=== PATIENT | female | born 1965 | race Caucasian/White ===

== ENCOUNTER 2023-11-07 08:21 | Emergency (ER) | payer BC, SELFPAY ==
[2023-11-07] VITALS (10 sets, daily range): BP systolic 122–169; BP diastolic 93–113; PULSE 82–103; RESP 16; TEMP 36.4; O2SAT 91–100; BMI 31.3
--- NOTE | 2023-11-07 08:29 | XRR_ITS ---
PROCEDURE INFORMATION: Exam: XR Left Ankle Exam date and time: 11/07/2023 8:46 AM Age: 58 years old Clinical indication: Injury or trauma; Fall; Fracture, traumatic; Closed fracture and displaced; Ankle; Right; Bimalleolar TECHNIQUE: Imaging protocol: Radiologic exam of the left ankle. Views: 3 or more views. COMPARISON: No relevant prior studies available. FINDINGS: Bones/joints: Displaced and angulated mildly comminuted distal fibula fracture. Displaced medial malleolar fracture. Medial subluxation of the tibia with respect to the talus by approximately half the talar dome width. Small corticated ossicle at the dorsal forefoot may represent sequela of old trauma versus phlebolith. Minimal posterior and plantar calcaneal enthesophytes. Soft tissues: Soft tissue swelling about the lower leg and ankle. XR/XR ankle LT min 3V* [id number] IMPRESSION: Displaced bimalleolar fracture.
--- NOTE | 2023-11-07 09:08 | W.ED.EXTPRO ---
HPI - Extremity Problem General: Chief complaint: Extremity Injury, Lower Stated complaint: ANKLE PAIN Time Seen by Provider: 11/07/23 08:21 Source: patient Mode of arrival: ambulatory History of Present Illness: 58-year-old female presents emergency room with acute Right ankle pain she slipped on the stairs going down this morning is obvious deformity. Arrives via EMS. No other injuries in the course of the fall. MD Complaint: joint swelling and joint pain Onset (ago): minute(s) Pain Consistency: constant Location: right (Ankle) Quality: sharp Relieving factors: immobilization Exacerbating factors: palpation Associated symptoms: Deny chest pain, fever(s) or rash Review of Systems Const: Denies: fever(s) or chills Card: Denies: chest pain Resp: Denies: dyspnea GI: Denies: abdominal pain : Denies: dysuria, urinary frequency or urinary urgency Musc: Denies: neck pain or back pain Skin/Breast: Denies: rash Physical Exam Const: GENERAL APPEARANCE: cooperative and comfortable ORIENTATION/CONSCIOUSNESS: Yes awake, Yes oriented to person, Yes oriented to place and Yes oriented to time HENMT: COMMON NORMALS: normocephalic, atraumatic and hearing grossly normal bilaterally HEAD & SCALP: normocephalic and atraumatic Resp: COMMON NORMALS: normal respiratory effort, No retractions, No use of accessory muscles and clear to auscultation bilaterally AUSCULTATION: clear to auscultation bilaterally Cardio: COMMON NORMALS: regular rate, regular rhythm and No murmurs present (Cardio) RATE: regular rate RHYTHM: regular rhythm Extremity: COMMON NORMALS: normal to inspection, capillary refill normal, no clubbing, cyanosis or edema, no calf tenderness and no pedal edema Neuro: SENSORIUM/ORIENTATION: Yes oriented to person, Yes oriented to place and Yes oriented to time Skin: COMMON NORMALS: no rashes or lesions noted GENERAL SKIN EXAM: no rashes or lesions noted Procedures Orthopedic Joint Reduction Joint #1: Time Out Performed: Yes Side: right Joint Reduction Location: ankle Analgesia: procedural sedation Technique used: traction/counter-traction Post-reduction neuro exam: intact Post-reduction vascular: intact Post Reduction X-Ray Obtained: Yes Post Reduction X-Ray Results: reduced Splint Applied: Yes Patient Tolerated Procedure: well Additional Comments: Reviewed films with Dr. Lowery on-call for podiatry postoperatively patient is feeling better the appearance of the films is not as good as he would like to see with the reduction however she is feeling better and is somewhat improved at least felt that it was adequate after reviewing the films I will see the patient next week. Procedural Sedation Indication: fracture/dislocation reduction Fentanyl: IV Fentanyl dose (mcg): 50 IV Etomidate dose (mg): 10 Patient Tolerated Procedure: well Complications: none Interventions: oxygen applied Course Vital Signs: Vital signs: Vital Signs Temperature 97.5 F L 11/07/23 08:21 Pulse Rate 92 11/07/23 10:50 Respiratory Rate 16 11/07/23 10:50 Blood Pressure 168/103 11/07/23 10:50 Pulse Oximetry 97 11/07/23 10:50 Oxygen Delivery Me thod Room Air 11/07/23 10:50 Oxygen Flow Rate 3 11/07/23 10:36 MDM - Extremity (Nontraumatic) Medical Decision Making Postreduction there is improved but not completely anatomically aligned. Patient has relief of symptoms pain is much better. Neurovascularly is intact. Reviewed the films with Dr. Mcknight she felt it was adequate for nicely patient next week for reduction on postreduction films appears to be a trimalleolar fracture. Dr. Mcknight asked that we get a CT for surgical planning. On the nasal bone there is a appearance of a small tip of the nasal bone that has been fractured is difficult to tell because of the thinness of the bone if this is old or acute. In either event does not cause any cosmetic abnormalities does not need any further action Medical Records I reviewed the patient's medical records. Lab Data I reviewed the patient's lab results. Radiology Impressions Ankle X-Ray 11/07/23 10:18 IMPRESSION: Displaced trimalleolar fracture with improved medial and lateral alignment status post reduction. Posterior malleolus fracture is now evident. Nasal Bones X-Ray 11/07/23 10:18 IMPRESSION: No acute findings. XR interpretation done by ED provider, pending radiology final review Discharge Plan Discharge Patient Disposition: Home Clinical Impression: Trimalleolar fracture of right ankle Condition: Stable Prescriptions: New hydrocodone-acetaminophen 5-325 mg tablet 1 tab PO Q6H PRN (Reason: pain) Qty: 20 0RF Discharge Orders: Discharge ED (Routine); Ordered 11/07/23 Ordered By: Stalin Killian Discharge Diet: Usual diet Discharge Activity: Limit activity as instructed Patient Instructions: Opioid Safety, Pain Management Activity Restrictions/Additional Instructions: Thank you for choosing [facility] for your healthcare needs today. Please realize this is an emergency room and that we are providing you with a medical screening exam and this may not be complete and all inclusive of all the testing and or work up that you may need to determine your ailment or severity of your illness. It is very important that you follow up as instructed or that you return to the Emergency Department should you have concerns or if your condition changes or worsens in any way. You were seen today after a injury to your right ankle. You have a fracture in the right ankle and will need to see podiatry likely will need surgery. Case management will help make arrangements for the follow-up. Elevate leg when you are able you may apply ice over the splint for comfort. Nonweightbearing on the right foot use crutches for any ambulation. Coding Level of Care Code ED Meter Reader Inspector for Juan Rocha
[2023-11-07] MEDS: ondansetron 2 mg/ML SDV 2 mL 4 MG IVP (10:11)
[2023-11-07] MEDS: fentaNYL 50 mcg/mL INJ 2mL IVP ×2 (10:11→11:48)
[2023-11-07] MEDS: etomidate 2 mg/mL INJ SDV 10 mL 10 MG IVP (10:16)
--- NOTE | 2023-11-07 10:18 | XRR_ITS ---
PROCEDURE INFORMATION: Exam: XR Right Ankle Exam date and time: 11/07/2023 10:31 AM Age: 58 years old Clinical indication: Injury or trauma; Fall; Blunt trauma; Ankle; Right; Additional info: Postreduction TECHNIQUE: Imaging protocol: Radiologic exam of the right ankle. Views: 3 or more views. COMPARISON: No relevant prior studies available. FINDINGS: Bones/joints: Malaligned trimalleolar fracture status post reduction shows improved medial and lateral fracture alignment. Mildly displaced and angulated posterior malleolus fracture is now evident. Soft tissues: Soft tissue swelling about the lower leg and ankle. XR/XR ankle RT min 3V* [id number] IMPRESSION: Displaced trimalleolar fracture with improved medial and lateral alignment status post reduction. Posterior malleolus fracture is now evident.
--- NOTE | 2023-11-07 10:18 | XRR_ITS ---
PROCEDURE INFORMATION: Exam: XR Nasal Bones Exam date and time: 11/07/2023 10:34 AM Age: 58 years old Clinical indication: Injury or trauma; Fall; Blunt trauma (contusions or hematomas); Nose TECHNIQUE: Imaging protocol: XR of the nasal bones. Views: Minimum of 3 views COMPARISON: No relevant prior studies available. FINDINGS: Sinuses: Well aerated. No opacification. Bones/joints: No fracture. Soft tissues: Unremarkable. XR/XR nasal bones min 3V [id number] IMPRESSION: No acute findings.
--- NOTE | 2023-11-07 11:01 | CTR_ITS ---
PROCEDURE INFORMATION: Exam: CT Right Lower Extremity Without Contrast, Ankle Exam date and time: 11/07/2023 11:08 AM Age: 58 years old Clinical indication: Injury or trauma; Fall; Blunt trauma; Ankle; Right; Additional info: Ankle fracture TECHNIQUE: Imaging protocol: CT of the right lower extremity without contrast was performed. Exam focused on the ankle. Radiation optimization: All CT scans at this facility use at least one of these dose optimization techniques: automated exposure control; mA and/or kV adjustment per patient size (includes targeted exams where dose is matched to clinical indication); or iterative reconstruction. COMPARISON: CR (LOW EXM, ) 11/07/2023 10:31 AM RADIATION DOSE METRICS: Total DLP (mGy-cm): 180.56 FINDINGS: Bones/joints: Displaced comminuted trimalleolar fracture with disrupted syndesmosis and subluxation of the tibiotalar joint. Mineralization is normal. Hind and midfoot bones are intact. Minimal calcaneal enthesophytes. Soft tissues: Soft tissue swelling about the ankle. CT/CT ankle RT wo con* [id number] IMPRESSION: Displaced comminuted trimalleolar fracture with disrupted syndesmosis and subluxation of the tibiotalar joint.
--- NOTE | 2023-11-09 08:09 | DCPLANNER ---
Message was sent to podiatry on 11/09/23 at 0810 am. Clinic to contact patient
== END 2023-11-07 12:08 | disposition home or self-care (01) ==
PROVIDERS: Emergency Provider Family Medicine
DX: S82.851A Displaced trimalleolar fracture of right lower leg, initial encounter for closed fracture (principal); W10.8XXA Fall (on) (from) other stairs and steps, initial encounter
CPT/HCPCS: 27818; 70160; 73610; 73700; 94799; 96374; 99152; 99285; J2405; J3010; J3490

== ENCOUNTER 2023-11-13 11:23 | Day surgery (SDC) | payer BC, SELFPAY ==
[2023-11-13] VITALS (14 sets, daily range): BP systolic 116–166; BP diastolic 82–110; PULSE 63–105; RESP 16–18; TEMP 36.1–36.6; O2SAT 92–97; BMI 31.3
[2023-11-13] MEDS: gabapentin 300 mg Capsule PO (12:25)
[2023-11-13] MEDS: scopolamine 1.5 Patch 1 PATCH TRANSDERMA (12:25)
[2023-11-13] MEDS: sodium chloride 0.9% 1,000 ML 30 ML IV (12:26)
[2023-11-13] MEDS: acetaminophen 1,000 MG/100 ML PIGGYBACK 400 MG IV (12:30)
[2023-11-13] MEDS: midazolam 1 mg/mL INJ 2 mL 2 MG IVP (12:30)
--- NOTE | 2023-11-13 12:53 | ANES.PREANE2 ---
Pre-Anesthetic Assessment Height/Weight: Height 1.7 m Temp Pulse Resp BP Pulse Ox O2 Del Method 97.9 F 105 H 18 143/110 95 Room Air 11/13/23 12:04 11/13/23 12:04 11/13/23 12:04 11/13/23 12:04 11/13/23 12:04 11/13/23 12:12 Preop Diagnosis: Right trimalleolar ankle fracture Operation Date: 11/13/23 13:15 Proposed Procedures p ORIF right trimalleolar ankle fracture 07666,S82.851A(Right) - Osmani Sutton DPM Last intake: Intake Last Liquid Date 11/11/23 Last Liquid Time 07:30 Last Solid Date 11/12/23 Last Solid Time 18:00 Social No alcohol and No tobacco Exam alert, oriented x 3, clear to auscultation bilaterally and regular rate & rhythm Airway Submandibular: within normal limits Cervical ROM: within normal limits Mallampati: Class II History/ROS No significant history except as noted and No significant complaints Pulmonary None reported CV/HEM None reported None reported Hepatic None reported GI None reported Metabolic None reported (Obesity) Musc/skel None reported Neuropsych None reported Anesthetic Plan ASA status: 2 Anesthesia: Anesthesia Evaluation, General and Regional (specify below) (Left Popliteal block) Risk of > 500 ml blood loss (7ml/kg in children): Yes, adequate IV access and fluids planned Medications/Allergies Home Medications Medication Instructions Recorded Confirmed Last Taken Type hydrocodone 5 mg-acetaminophen 325 1 tab PO Q6H PRN pain #20 tabs 11/07/23 11/12/23 Unknown Rx mg tablet hydrocodone 5 mg-acetaminophen 325 1 tab PO Q6H PRN post op pain 7 11/13/23 Unknown Rx mg tablet days #28 tabs ondansetron HCl 8 mg tablet 8 mg PO Q8H PRN nausea and 11/13/23 Unknown Rx vomiting #21 tabs Allergies Allergy/AdvReac Type Severity Reaction Status Date / Time nickel Allergy Intermediate ALGY-Rash Verified 11/12/23 14:05 Sulfa (Sulfonamide Allergy ALGY-Hives Verified 11/12/23 14:05 Antibiotics) Current Medications Generic Name Dose Route Start Last Admin Trade Name Freq PRN Reason Stop Dose Admin Sodium Chloride 1,000 mls @ 30 mls/hr 11/13/23 11:45 11/13/23 12:26 Sodium Chloride 0.9% IV 11/14/23 11:44 30 mls/hr .Q24H PADMINI Administration Midazolam HCl 2 mg 11/13/23 11:37 11/13/23 12:30 Midazolam 1 Mg/Ml Inj 2 Ml IVP 2 mg Q5M PRN Administration Preop Anxiety Data Anesthesia Cardiac Studies: No Data to Display
--- NOTE | 2023-11-13 12:56 | ANES.PROC ---
Anesthesia Procedures Procedure/Date: 11/13/23 Nerve Block ^: Nerve Block 1: Main Anesthesia: general anesthesia Time Out Performed: Yes Consent: requested by attending/covering physician, risks and benefits reviewed and patient agrees to proceed Nerve block location: popliteal (left) Anesthesia monitors applied: pulse oximetry, EKG and BP cuff Nerve block position: lateral Anesthetic Used: ropivicaine 0.5% (20 ml ) Ultrasound used to: recognize landmarks (unable to print picture. landmarks identified by PLATFORM ARCHITECT x 2 ) Interscalene/Femoral BLK: 4 stimuplex 21 g needle used for position and inplane approach Injection: neg aspiration of heme Patient Tolerated Procedure: well and no complications Complications: none
--- NOTE | 2023-11-13 13:43 | W.PM.OPSUD ---
Surgery/Procedure H&P Update DATE OF PROCEDURE: November 13, 2023 DATE H&P PERFORMED: 11/09/23 H&P UPDATE INFORMATION: I have reviewed H&P completed within last 30 days, I have examined patient prior to procedure, No changes to prior documentation and H&P is in [facility] [place] [place] EMR on date indicated PREOP DIAGNOSIS: Right trimalleolar ankle fracture PLANNED PROCEDURE: Operation Date: 11/13/23 13:15 Proposed Procedures p ORIF right trimalleolar ankle fracture 75603,S82.851A(Right) - Osmani Sutton DPM
[2023-11-13] MEDS: ceFAZolin 2,000 MG in sodium chloride 0.9% (plus) 50 ML 100 MG IV (13:57)
[2023-11-13] MEDS: BUPivacaine 0.5% INJ 10 mL 20 ML INJECTION (14:14)
--- NOTE | 2023-11-13 16:13 | P.BOP_ITS ---
Date of procedure: 11/13/2023 Surgeon name: Dr. Osmani Sutton D.P.M. Roller Printing Supervisor(s) name(s): Сергей Procedure(s) performed: Open reduction internal fixation right trimalleolar ankle fracture Description of findings: Comminuted fibular fracture, medial mall fracture. Posterior malleolus fracture anatomic position upon fixing lateral and medial malleolus Estimated blood loss: 15 cc Tourniquet time: 107 minutes Specimen(s) removed: None Post-operative diagnosis: Right trimalleolar ankle fracture
--- NOTE | 2023-11-13 16:14 | XRR_ITS ---
PROCEDURE INFORMATION: Exam: XR Right Ankle Exam date and time: 11/13/2023 4:25 PM Age: 58 years old Clinical indication: Device placement; Other: Not specified; Prior surgery; Surgery date: Post-operative (0-2 days); Surgery type: Right ankle; Additional info: Post op TECHNIQUE: Imaging protocol: Radiologic exam of the right ankle. Views: 3 or more views. COMPARISON: CT ankle RT wo con* [id number] 11/07/2023 11:08 AM FINDINGS: Bones/joints: Postoperative changes with evidence of internal fixation distal fibula, lateral malleolus with plate and screws and also fixation of medial malleolus with 2 screws and also evidence of pin/screw transversely fibula tibia level of syndesmosis, with evidence of improved position and alignment of fracture fragments fibula and tibia/ankle compared to images from 11/07/2023. No additional new appearing displaced fracture nor dislocation seen. Soft tissues: Skin nazanin laterally, medially. XR/XR ankle RT min 3V* [id number] IMPRESSION: Postoperative changes, internal fixation.
--- NOTE | 2023-11-13 16:14 | P.OP_ITS ---
Operative Report Date of procedure: November 13, 2023 Pre-op diagnosis: Right trimalleolar ankle fracture Post-op diagnosis: Same Procedure done: ORIF Right trimalleolar ankle fracture CPT 87287 Implants: 11 hole anatomic fibular plate, cardiac syndesmotic screw, associated 3.5 mm locking screws for the 11 hole plate and 3.5 headed short thread screws, all from [place] 28 Surgeon: Osmani Sutton DPM Estimated blood loss: 15 cc 107 minutes Complications: None Procedure: Patient is a 58-year-old female that has a history of right trimalleolar ankle fracture. The patient has had the aforementioned chief complaint for some time. Conservative treatment measures have been attempted and the patient has opted for surgical intervention at this time. A lengthy discussion regarding the procedure, including risks and complications has been had with the patient and is noted in the recent clinic note. Written and verbal consent have been obtained. All patient questions have been answered to the patient?s satisfaction. No written or verbal guarantees have been given or implied. The patient has been NPO since midnight. The history has been reviewed and the history and physical is current. The signed consent was confirmed and placed in the patient chart. Patient imaging has been reviewed and is consistent with the diagnosis. Under mild sedation, the patient was brought into the operating room and placed on the table in the supine position. IV antibiotics were given by the anesthesia team as preoperative surgical prophylaxis. General sedation was then performed by the anesthesiateam. A popliteal block was performed by the anesthesia department. A pneumatic tourniquet was then placed about the right ankle. The operative extremity was then prepped and draped in the usual fashion. The extremity was then elevated and exsanguinated before the tourniquet was inflated to 325 mmHg. After inflation, the following procedure was then performed. Attention was directed to the lateral aspect of the right ankle where a 15 cm incision was made overlying the fibula. Dissection was carried down through subcutaneous and superficial fascia to the level of the periosteum. This was reflected to expose the a long oblique fibular fracture with comminution. The fracture pattern was noted to be in 2 parts with a long posterior spike as well as a standard Tipton B fracture. Care was taken to reduce the long posterior spike. After achieving reduction a 5 hole one third tubular plate was used to buttress the fracture posteriorly. Next, attention was directed to the [place] B portion of the fibular fracture. This was reduced and a anatomic fibular plate was placed over the fracture. The plate was noted to be positioned in the appropriate area. The distal holes of the plate were drilled and filled in standard fashion. The proximal holes of the plate were then filled. Filling the proximal holes of the plate the 5 hole one third tubular buttressing plate was noted to have loosened and was not attached to the fibula. The posterior spike was then mobilized and was noted to be an extremely thin and long portion of cortical bone. This was removed from the operative field. The fibula remained stable with the 11 hole anatomic fibular plate. The 5 hole one third tubular plate was removed from the operative field as well. Attention was then directed to the medial aspect of the ankle where an 8 cm incision was made overlying the medial malleolus. Dissection was carried down through subcutaneous and superficial fascia to the level of the periosteum which was incised to expose the medial malleolus fracture. The hematoma was removed from the fracture site before being reduced. Guidewires were driven across the fracture site before two 3.5 mm headed screws were driven over the wires across the fracture site. Good positioning of the screws was noted clinically as well as on C-arm imaging. The syndesmosis was stressed and there was noted to be gapping of the medial gutter indicating syndesmosis instability. A reaction as moderate screw was inserted through the anatomic fibular plate from posterolateral to anteromedial in standard fashion. 30 degrees from the frontal plane. Good positioning of the syndesmotic screw was visualized clinically as well as on C-arm imaging. Incision sites were irrigated with copious amounts of sterile saline before attention was directed to closure. Deep tissue was closed with 2-0 Vicryl followed by subcuticular closure with 3-0 Vicryl and skin closure with skin nazanin. Incisions were dressed using Xeroform, 4 x 4 gauze, Kerlix before the patient was placed in a well-padded below the knee posterior splint. The tourniquet was let down and good hyperemic response was noted to all digits of the right foot. The patient tolerated the procedure and anesthesia well and without complication. The patient was transported from the operating room to the recovery room with vital signs stable and vascular status intact to all digits of the right foot. The patient was given both written and verbal instructions to remain nonweightbearing to the operative extremity, to keep dressings/splint clean, dry and intact and to take pain medication as directed. The patient will follow-up in the outpatient setting at their scheduled appointment. The patient was discharged with my personal number and was instructed to call if any questions or issues should arise. They were discharged home once anesthesia criteria was met.
--- NOTE | 2023-11-13 16:17 | ANE.PACU2 ---
Inpatient post-anesthesia follow up: Vital signs: Temperature 97.9 F Pulse Rate 105 Respiratory Rate 18 Blood Pressure 143/110 Pulse Oximetry 95 Oxygen Delivery Me thod Room Air Oxygen Flow Rate Fraction of Inspir ed Oxygen Hydration adequate: Yes Nausea and vomiting: No Pain level: 5 Mental status: Baseline
[2023-11-13] MEDS: HYDROmorphone 1 mg/mL INJ 1 mL 0.5 MG IVP (16:33)
[2023-11-13] MEDS: oxyCODONE-APAP 10-325 mg Tablet 1 TAB PO (17:16)
== END 2023-11-13 17:36 | disposition home or self-care (01) ==
PROVIDERS: PCP Family Medicine; Visit Provider Podiatrist Foot & Ankle Surgery
PROC: (CPT 27822; principal; 2023-11-13 13:15)
DX: S82.851A Displaced trimalleolar fracture of right lower leg, initial encounter for closed fracture (principal); W10.8XXA Fall (on) (from) other stairs and steps, initial encounter; E66.9 Obesity, unspecified; Z68.31 Body mass index [BMI] 31.0-31.9, adult
CPT/HCPCS: 27822; 73610; 76000; C1713 ×2; J0131; J0690; J1100; J1170; J2250; J2405; J2704; J2795; J3010; J3490; J7030

== ENCOUNTER → 2023-11-25 13:04 | Outpatient (BNVA) | payer BC, SELFPAY | PROVIDERS: PCP Family Medicine; Visit Provider Podiatrist Foot & Ankle Surgery | DX: M25.571 Pain in right ankle and joints of right foot (principal); S82.851D Displaced trimalleolar fracture of right lower leg, subsequent encounter for closed fracture with routine healing; X58.XXXD Exposure to other specified factors, subsequent encounter | CPT/HCPCS: 73610 ==

== ENCOUNTER → 2023-12-10 13:42 | Outpatient (BNVA) | payer BC, SELFPAY | PROVIDERS: PCP Family Medicine; Visit Provider Podiatrist Foot & Ankle Surgery | DX: Z98.890 Other specified postprocedural states; S82.851D Displaced trimalleolar fracture of right lower leg, subsequent encounter for closed fracture with routine healing; X58.XXXD Exposure to other specified factors, subsequent encounter | CPT/HCPCS: 73610 ==

== ENCOUNTER 2023-12-10 15:10 | Outpatient (CLI) | payer BC, SELFPAY | END 2023-12-10 15:11 | disposition home or self-care (01) | LOC: SPT 15:11 | PROVIDERS: PCP Family Medicine; Visit Provider Podiatrist Foot & Ankle Surgery | DX: Z46.89 Encounter for fitting and adjustment of other specified devices (principal); S82.891D Other fracture of right lower leg, subsequent encounter for closed fracture with routine healing; X58.XXXD Exposure to other specified factors, subsequent encounter | CPT/HCPCS: 97760; L4361 ==

== ENCOUNTER → 2023-12-25 09:37 | Outpatient (BNVA) | payer BC, SELFPAY | PROVIDERS: PCP Family Medicine; Visit Provider Podiatrist Foot & Ankle Surgery | DX: M25.571 Pain in right ankle and joints of right foot (principal); Z98.890 Other specified postprocedural states; S82.851D Displaced trimalleolar fracture of right lower leg, subsequent encounter for closed fracture with routine healing; X58.XXXD Exposure to other specified factors, subsequent encounter | CPT/HCPCS: 73610 ==

== ENCOUNTER → 2024-01-08 09:49 | Outpatient (BNVA) | payer BC, SELFPAY | PROVIDERS: PCP Family Medicine; Visit Provider Podiatrist Foot & Ankle Surgery | DX: M25.571 Pain in right ankle and joints of right foot (principal); Z98.890 Other specified postprocedural states | CPT/HCPCS: 73610 ==

== ENCOUNTER 2024-01-22 06:00 | Outpatient (RCR) | payer BC, SELFPAY | END 2024-01-31 23:59 | disposition home or self-care (01) | LOC: MPT 06:00 | PROVIDERS: Visit Provider Podiatrist Foot & Ankle Surgery | DX: Z47.89 Encounter for other orthopedic aftercare (principal) | CPT/HCPCS: 97110; 97162 ==

== ENCOUNTER 2024-02-01 06:00 | Outpatient (RCR) | payer BC, SELFPAY | END 2024-03-01 23:59 | disposition home or self-care (01) | LOC: MPT 06:00 | PROVIDERS: PCP Family Medicine; Visit Provider Podiatrist Foot & Ankle Surgery | DX: Z98.890 Other specified postprocedural states (principal) | CPT/HCPCS: 97110; 97140 ==

== ENCOUNTER → 2024-02-01 14:04 | Outpatient (BNVA) | payer BC, SELFPAY | PROVIDERS: PCP Family Medicine; Visit Provider Podiatrist Foot & Ankle Surgery | DX: M25.571 Pain in right ankle and joints of right foot (principal); Z98.890 Other specified postprocedural states | CPT/HCPCS: 73610 ==

== ENCOUNTER → 2024-03-01 09:01 | Outpatient (BNVA) | payer BC, SELFPAY | PROVIDERS: PCP Family Medicine; Visit Provider Student in an Organized Health Care Education/Training Program | DX: M23.306 Other meniscus derangements, unspecified meniscus, right knee; M17.11 Unilateral primary osteoarthritis, right knee | CPT/HCPCS: 73560; 73565 ==

== ENCOUNTER 2024-03-01 10:02 | Outpatient (CLI) | payer BC, SELFPAY | END 2024-03-01 10:03 | disposition home or self-care (01) | LOC: SPT 10:03 | PROVIDERS: PCP Family Medicine; Visit Provider Student in an Organized Health Care Education/Training Program | DX: Z46.89 Encounter for fitting and adjustment of other specified devices (principal); S83.206D Unspecified tear of unspecified meniscus, current injury, right knee, subsequent encounter; X58.XXXD Exposure to other specified factors, subsequent encounter; M25.561 Pain in right knee | CPT/HCPCS: 97760; L1812 ==

== ENCOUNTER 2024-03-02 06:00 | Outpatient (RCR) | payer BC, SELFPAY | END 2024-04-01 23:59 | disposition home or self-care (01) | LOC: MPT 06:00 | PROVIDERS: PCP Family Medicine; Visit Provider Podiatrist Foot & Ankle Surgery | DX: Z47.89 Encounter for other orthopedic aftercare (principal) | CPT/HCPCS: 97110 ==

== ENCOUNTER 2024-03-24 13:46 | Outpatient (CLI) | payer BC, SELFPAY ==
--- NOTE | 2024-03-24 13:45 | MR_ITS ---
WS: [id number] MRI RIGHT KNEE NONCONTRAST TECHNIQUE: Axial PD, coronal PD fat sat, coronal PD, sagittal PD, and sagittal PD fat-sat images obta ined. CLINICAL INFORMATION: knee pain COMPARISON: None. FINDINGS: Distal quadriceps and patella tendons are intact. Normal ACL and PCL. Diffuse edema in the medial fem oral condyle with high-grade tear of the medial patella retinaculum with diffuse edema and irregulari ty. Fluid and edema deep to the medial patellar retinaculum with contusion in the medial femoral cond yle. No significant edema in the tibia. Recommend correlation for recent injury and patella instabili ty. Lateral patellar retinaculum appears intact. Somewhat shallow trochlear groove. Grade 1-2 injury involving the medial collateral ligament with fluid and edema deep to the MCL which remains intact. N ormal lateral collateral ligament. Normal popliteal fossa. Fibular head is normal. Chronic thinning of the medial and lateral meniscus. No acute appearing menis kassandra tears. Moderate tricompartmental arthritis. MR/MR knee RT wo con* [id number] IMPRESSION: 1. Moderate tricompartment arthritis. 2. ACL and PCL appear intact. 3. Diffuse edema lateral femoral condyle compatible with contusion with suspec rojelio high-grade tear of the medial patellar retinaculum. Fluid and edema deep to the retinaculum with irregularity. 4. Grade 1-2 injury medial collateral ligament with fluid and edema deep to th e MCL. 5. Recommend correlation for recent injury and patellar instability. Somewhat shallow trochlear groove. Moderate chondromalacia patella. 6. Prepatellar soft tissue edema. 7. No acute appearing meniscal tears. Outbridge grading: grade III: partial-thickness cartilage loss with focal ulcer ation
== END 2024-03-24 13:47 | disposition home or self-care (01) ==
LOC: RAD 13:46
PROVIDERS: PCP Family Medicine; Visit Provider Student in an Organized Health Care Education/Training Program
DX: S83.206A Unspecified tear of unspecified meniscus, current injury, right knee, initial encounter (principal); M17.11 Unilateral primary osteoarthritis, right knee; S83.411A Sprain of medial collateral ligament of right knee, initial encounter; M22.41 Chondromalacia patellae, right knee
CPT/HCPCS: 73721

== ENCOUNTER 2024-04-02 06:00 | Outpatient (RCR) | payer BC, SELFPAY | END 2024-05-01 23:59 | disposition home or self-care (01) | LOC: MPT 06:00 | PROVIDERS: PCP Family Medicine; Visit Provider Podiatrist Foot & Ankle Surgery | DX: Z47.89 Encounter for other orthopedic aftercare (principal) | CPT/HCPCS: 97110; 97140 ==

== ENCOUNTER → 2024-08-11 15:16 | Outpatient (BNVA) | payer BC, SELFPAY | PROVIDERS: PCP Family Medicine; Visit Provider Podiatrist Foot & Ankle Surgery | DX: M25.571 Pain in right ankle and joints of right foot (principal) | CPT/HCPCS: 73610 ==

== ENCOUNTER 2024-09-26 05:40 | Day surgery (SDC) | payer BC, SELFPAY ==
[2024-09-26] VITALS (10 sets, daily range): BP systolic 120–150; BP diastolic 81–104; PULSE 84–99; RESP 16–18; TEMP 36.1–36.5; O2SAT 95–97; BMI 31.3
--- NOTE | 2024-09-26 | XR_ITS ---
WS: [id number] C-ARM RADIOGRAPHS RIGHT ANKLE; 1 IMAGES HISTORY: CRISTOPHER PICS COMPARISON: RIGHT ankle radiograph 08/11/2024 Intraoperative imaging during hardware removal at the RIGHT ankle. All of the hardware has been remov ed on the image submitted. There are no residual plates or screws. XR/XR ankle RT min 3V* [id number] IMPRESSION: Intraoperative imaging during hardware removal.
[2024-09-26] MEDS: acetaminophen 1,000 MG/100 ML PIGGYBACK 400 MG IV (06:11)
[2024-09-26] MEDS: gabapentin 300 mg Capsule PO (06:12)
[2024-09-26] MEDS: sodium chloride 0.9% 1,000 ML 30 ML IV (06:18)
[2024-09-26] MEDS: scopolamine 1.5 Patch 1 PATCH TRANSDERMA (06:18)
--- NOTE | 2024-09-26 06:37 | P.HPUD_ITS ---
Surgery/Procedure H&P Update DATE OF PROCEDURE: September 26, 2024 DATE H&P PERFORMED: 09/08/24 H&P UPDATE INFORMATION: I have reviewed H&P completed within last 30 days, I have examined patient prior to procedure, No changes to prior documentation and H&P is in [facility] EMR on date indicated PREOP DIAGNOSIS: Painful orthopedic hardware PLANNED PROCEDURE: Operation Date: 09/26/24 07:00 Proposed Procedures p Hardware removal right ankle(Right) - Osmani Sutton DPM
--- NOTE | 2024-09-26 06:54 | PC.NURSE ---
Time out completed at 0643 for a pop block, Dr. Pichardo at bedside, pt verbalizes consent to right leg, pulse 101, 97%spo2 on 2L, pt on tele, medication includes 4mg decadron, and 30cc 0.5% Ropivacaine to right pop block.
[2024-09-26] MEDS: ceFAZolin 2,000 mg SDV 2000 MG IVP (06:55)
--- NOTE | 2024-09-26 06:55 | ANES.PREANE2 ---
Pre-Anesthetic Assessment Height/Weight: Height 1.7 m Weight 90.718 kg Temp Pulse Resp BP Pulse Ox O2 Del Method 97.7 F 99 17 150/104 95 Room Air 09/26/24 06:00 09/26/24 06:00 09/26/24 06:00 09/26/24 06:00 09/26/24 06:00 09/26/24 06:01 Preop Diagnosis: Painful orthopedic hardware Operation Date: 09/26/24 07:00 Proposed Procedures p Hardware removal right ankle(Right) - Osmani Sutton DPM Familial anesthetic complications: None Was Beta Tomeka taken within 24 hours: N/A Was Clonidine taken within 24 hours: N/A Last intake: Intake Last Liquid Date 09/25/24 Last Liquid Time 22:00 Last Solid Date 09/25/24 Last Solid Time 17:00 Social No alcohol and No tobacco Exam alert, oriented x 3, clear to auscultation bilaterally and regular rate & rhythm Anesthetic Plan ASA status: 2 Anesthesia: General and Regional (specify below) Risk of > 500 ml blood loss (7ml/kg in children): No Medications/Allergies Home Medications Medication Instructions Recorded Confirmed Last Taken Type CAM boot #1 ea 12/10/23 09/22/24 Unknown Rx ASO brace to the right #1 ea 01/08/24 09/22/24 Unknown Rx right knee hinged brace #1 ea 03/01/24 09/22/24 Unknown Rx Vitamin C (ascorbate calcium) 500 mg PO DAILY 09/22/24 09/26/24 09/24/24 History magnesium carb,citrate,oxide 300 mg PO DAILY 09/22/24 09/26/24 09/24/24 History (Magnesium Complex) vitamin D3 1,250 mcg (50,000 1 cap PO DAILY 09/22/24 09/26/24 09/24/24 History unit)-vitamin K2 200 mcg capsule hydrocodone 5 mg-acetaminophen 325 1 tab PO Q6H PRN pain #20 tabs 09/26/24 Unknown Rx mg tablet Allergies Allergy/AdvReac Type Severity Reaction Status Date / Time nickel Allergy Intermediate ALGY-Rash Verified 09/22/24 14:07 Sulfa (Sulfonamide Allergy ALGY-Hives Verified 09/22/24 14:07 Antibiotics) Current Medications Generic Name Dose Route Start Last Admin Trade Name Freq PRN Reason Stop Dose Admin Sodium Chloride 1,000 mls @ 30 mls/hr 09/26/24 06:00 09/26/24 06:18 Sodium Chloride 0.9% IV 09/27/24 05:59 30 mls/hr .Q24H PADMINI Administration PFSH Anesthesia Social History Smoking and tobacco/nicotine status: never used tobacco/nicotine Alcohol intake: current Alcohol intake frequency: holidays/special occasions only Data Anesthesia Cardiac Studies: No Data to Display
--- NOTE | 2024-09-26 07:20 | ANES.PROC ---
Anesthesia Procedures Procedure/Date: 09/26/24 Nerve Block ^: Nerve Block 1: Main Anesthesia: general anesthesia Time Out Performed: Yes Consent: requested by attending/covering physician, from patient, from other, risks and benefits reviewed and patient agrees to proceed Nerve block location: popliteal (R) Anesthesia monitors applied: pulse oximetry, EKG, BP cuff and oxygen Nerve block position: supine Anesthetic Used: ropivicaine 0.5% (30 ml) and with decadron (4 mg) Ultrasound used to: recognize landmarks Nerve Stimulator Used?: No Interscalene/Femoral BLK: 4 stimuplex 21 g needle used for position and inplane approach, visualize local anesthetic spread and no vascular puncture identified Injection: neg aspiration of heme Patient Tolerated Procedure: well Complications: none
--- NOTE | 2024-09-26 08:08 | W.PM.BPON ---
Date of procedure: 09/26/2024 Surgeon name: Dr. Osmani Sutton D.P.M. Hand Tool Lapper(s) name(s): Brigido Procedure(s) performed: Hardware removal right ankle Description of findings: Orthopedic hardware intact right ankle Estimated blood loss: 5 cc Tourniquet time: 47 minutes Specimen(s) removed: Orthopedic hardware Post-operative diagnosis: Painful orthopedic hardware right ankle
--- NOTE | 2024-09-26 08:09 | P.OP_ITS ---
Operative Report Date of procedure: September 26, 2024 Pre-op diagnosis: Painful orthopedic hardware Post-op diagnosis: Same Post-op findings: No evidence of hardware failure Procedure done: Hardware removal right ankle CPT 15283 Specimens removed/disposition: Orthopedic hardware right ankle Surgeon: Osmani Sutton DPM Chucking Machine Set Up Operator Tool: Brigido Estimated blood loss: 5 cc 47 minutes Complications: None Findings: See above Procedure: Patient is a 59-year-old female that has a history of painful orthopedic hardware right ankle. The patient has had the aforementioned chief complaint for some time. Conservative treatment measures have been attempted and the patient has opted for surgical intervention at this time. A lengthy discussion regarding the procedure, including risks and complications has been had with the patient and is noted in the recent clinic note. Written and verbal consent have been obtained. All patient questions have been answered to the patient?s satisfact ion. No written or verbal guarantees have been given or implied. The patient has been NPO since midnight. The history has been reviewed and the history and physical is current. The signed consent was confirmed and placed in the patient chart. Patient imaging has been reviewed and is consistent with the diagnosis. Under mild sedation, the patient was brought into the operating room and placed on the table in the supine position. IV antibiotics were given by the anesthesia team as preoperative surgical prophylaxis. General sedation was then performed by the anesthesiateam. A pneumatic tourniquet was then placed about the right thigh. The operative extremity was then prepped and draped in the usual fashion. The extremity was then elevated and exsanguinated before the tourniquet was inflated to 325 mmHg. After inflation, the following procedure was then performed. Attention was directed to the lateral aspect of the right ankle where a 10 cm incision was made using a #15 blade. Dissection was carried down through subcutaneous the superficial fascia to the level of the fibular plate. #15 blade was used to dissect the entirety of the fibular plate. The syndesmotic screw was removed from the plate without complication. Next, the remaining screws from the plate were removed before the plate was removed from the lateral aspect of the fibula. Complete osseous union at fracture site was visualized. Site was irrigated with copious amounts of sterile saline before attention was directed to closure. Deep tissue was closed with 2-0 Vicryl followed by subcuticular closure with 3-0 Vicryl and skin closure with 4-0 nylon in horizontal mattress fashion. Attention was then directed to the region of the medial malleolus where a 4 cm incision was made overlying medial malleolus. Dissection was carried down through subcutaneous and superficial fascia. Dissection was carried out to expose the heads of the medial malleolus screws. These were removed without complication. Again, the site was irrigated with copious amounts of sterile saline before closure was performed using 3-0 Vicryl for deep closure, skin closure with 4-0 Vicryl subcutaneously and 4-0 nylon in horizontal mattress fashion. The tourniquet was let down good hyperemic response was noted to all digits of the right foot. Incision sites were dressed with Xeroform, 4 x 4 gauze, Kerlix, Reinier. The patient tolerated the procedure and anesthesia well and without complication. The patient was transported from the operating room to the recovery room with vital signs stable and vascular status intact to all digits of the right foot. The patient was given both written and verbal instructions to remain weightbearing as tolerated to the operative extremity, to keep dressings/splint clean, dry and intact and to take pain medication as directed. The patient will follow-up in the outpatient setting at their scheduled appointment. The patient was discharged with my personal number and was instructed to call if any questions or issues should arise. They were discharged home once anesthesia criteria was met.
[2024-09-26] MEDS: BUPivacaine 0.5% INJ 30 mL INJECTION (08:10)
[2024-09-26] MEDS: HYDROcodone-acetaminophen 5-325 mg Tablet 1 TAB PO ×2 (09:07→09:56)
--- NOTE | 2024-09-26 10:25 | ANE.PACU2 ---
Inpatient post-anesthesia follow up: Airway intact: Yes Vital signs: Temperature 97.0 F Pulse Rate 87 Respiratory Rate 17 Blood Pressure 140/94 Pulse Oximetry 95 Oxygen Delivery Me thod Room Air Oxygen Flow Rate Fraction of Inspir ed Oxygen Hydration adequate: Yes Nausea and vomiting: No Pain level: 1 Mental status: Baseline
== END 2024-09-26 10:25 | disposition home or self-care (01) ==
PROVIDERS: PCP Family Medicine; Visit Provider Podiatrist Foot & Ankle Surgery
PROC: (CPT 20680; principal; 2024-09-26 07:00)
DX: T84.89XA Other specified complication of internal orthopedic prosthetic devices, implants and grafts, initial encounter (principal); Y79.2 Prosthetic and other implants, materials and accessory orthopedic devices associated with adverse incidents
CPT/HCPCS: 20680; 73610; 76000; J0131; J0690; J1100; J2405; J2704; J2795; J3010; J3490; J7030

== ENCOUNTER → 2024-10-10 14:55 | Outpatient (BNVA) | payer BC, SELFPAY | PROVIDERS: PCP Family Medicine; Visit Provider Podiatrist Foot & Ankle Surgery | DX: M25.571 Pain in right ankle and joints of right foot (principal); T84.84XD Pain due to internal orthopedic prosthetic devices, implants and grafts, subsequent encounter; Y79.2 Prosthetic and other implants, materials and accessory orthopedic devices associated with adverse incidents | CPT/HCPCS: 73610 ==

== ENCOUNTER 2025-09-04 13:56 | Outpatient (CLI) | payer BC, SELFPAY ==
--- NOTE | 2025-09-04 14:04 | MM_ITS ---
WS: [id number] BILATERAL 3D TOMOSYNTHESIS DIGITAL SCREENING MAMMOGRAPHY WITH CAD CLINICAL INFORMATION: SCREENING HISTORY: Screening mammogram. No current complaints. COMPARISON: 2022 TECHNIQUE: Bilateral CC and MLO views. FINDINGS: Scattered fibroglandular densities bilaterally. No suspicious focal mass, asymmetry, calcifications, or architectural distortion. No evidence of malignancy. Lucent centered calcification RIGHT breast. MM/MM scr BI tomosynthesis [id number] IMPRESSION: DENSITY: There are scattered areas of fibroglandular density. BI-RADS: 2 - Benign. FOLLOW UP: 1 Year Follow-up Recommend return to annual screening mammography.
--- NOTE | 2025-09-04 14:04 | XR_ITS ---
WS: [id number] DEXA (DUAL ENERGY X-RAY ABSORPTIOMETRY) Bone mineral density was performed using a Pingpigeon machine. HISTORY: SCREENING FOR OSTEOPOROSIS COMPARISON: None available. Lumbar spine BMD (L1-L4): 1.121 g/cm2 T score: -0.5 Z score: 0.3 Total hip BMD: Left: 0.833 g/cm2. T score: -1.4 Z score: -0.8 Right: 0.741 g/cm2. T score: -2.1 Z score: -1.5 10 year probability of a major osteoporotic fracture is 15.9%. XR/XR DEXA axial skeleton* [id number] IMPRESSION: OSTEOPENIA based upon the WHO classification for females.
== END 2025-09-04 13:57 | disposition home or self-care (01) ==
LOC: RAD 13:59
PROVIDERS: PCP Family Medicine; Visit Provider Registered Nurse
DX: Z12.31 Encounter for screening mammogram for malignant neoplasm of breast (principal); Z13.820 Encounter for screening for osteoporosis; R92.323 Mammographic fibroglandular density, bilateral breasts; R92.1 Mammographic calcification found on diagnostic imaging of breast; M85.80 Other specified disorders of bone density and structure, unspecified site
CPT/HCPCS: 77063; 77067; 77080